=== PATIENT | male | born 1975 | race Caucasian/White ===

== ENCOUNTER 2019-07-16 07:39 | Emergency (ER) | payer OTHER ==
[2019-07-16] MEDS ORDERED: Ondansetron 4 MG/2 ML SDV IVPUSH ONE (07:59)
[2019-07-16] MEDS ORDERED: Sodium Chloride 0.9% 500 ML IV ONE ×2 (07:59→09:24)
[2019-07-16] MEDS ORDERED: HYDROmorphone 1 MG/ML Syringe IVPUSH PRN ×2 (08:00→08:29)
--- NOTE | 2019-07-16 08:01 | EDM.PDOC ---
ED HPI GENERAL MEDICAL PROBLEM - General Chief Complaint: Abdominal Pain Stated Complaint: LEFT SIDE STOMACH PAIN Time Seen by Provider: 07/16/19 07:53 Source of Information: Reports: Patient - History of Present Illness INITIAL COMMENTS - FREE TEXT/NARRATIVE: Presents with acute onset of left lower quadrant pain. Onset this morning. Was already awake. Never had anything like this before nothing makes it better or worse. Patient 10 out of 10, is gated, no vomiting had a normal bowel movement. Had normal urine no burning pain or blood in the urine no flank pain or testicle pain. Nothing otherwise seems to make it better or worse cannot find a comfortable position. No history of any major surgeries, no allergies except for nickel, no medication allergies. No coughing or cold symptoms no sore throat or runny nose no headaches no chest pain or palpitations. No burning pain or blood in the urine. Onset: Sudden Duration: Getting Worse Location: Reports: Abdomen Quality: Reports: Sharp Severity: Severe Improves with: Reports: None Worsens with: Reports: None Associated Symptoms: Reports: Diaphoresis, Nausea/Vomiting Left Middle Abdomen Pain Score (Numeric/FACES): 10 - Related Data Allergies Allergy/AdvReac Type Severity Reaction Status Date / Time No Known Allergies Allergy Verified 07/16/19 07:59 Home Meds: Home Meds Acetaminophen/HYDROcodone [[place] 325-5 MG] 1 - 2 tab PO Q4H PRN #10 tablet 07/15 [Rx] Antidepressant. 07/16/19 [History] Gout. 07/16/19 [History] Ketorolac [Toradol] 10 mg PO Q6H PRN #7 tab 07/16/19 [Rx] Ondansetron [Zofran ODT] 4 mg PO Q6H PRN #10 tab.dis 07/16/19 [Rx] ED ROS GENERAL - Review of Systems Review Of Systems: Comprehensive ROS is negative, except as noted in HPI. Constitutional: Reports: Diaphoresis HEENT: Denies: Rhinitis Respiratory: Denies: Shortness of Breath, Cough Cardiovascular: Denies: Chest Pain, Syncope GI/Abdominal: Reports: Abdominal Pain, Nausea, Vomiting. Denies: Black Stool, Bloody Stool, Diarrhea : Denies: Dysuria, Flank Pain, Hematuria, Urinary Retention Musculoskeletal: Denies: Neck Pain, Muscle Pain Skin: Reports: Diaphoresis Neurological: Denies: Dizziness, Headache Psychiatric: Reports: Anxiety Immunologic: Reports: No Symptoms ED EXAM, GI/ABD - Physical Exam Exam: See Below Exam Limited By: No Limitations General Appearance: Alert, Anxious, Moderate Distress Eyes: Bilateral: EOMI Throat/Mouth: Normal Inspection Head: Atraumatic Neck: Normal Inspection, Supple Respiratory/Chest: No Respiratory Distress, Lungs Clear, Normal Breath Sounds Cardiovascular: Normal Peripheral Pulses, Regular Rate, Rhythm, No Edema, No JVD GI/Abdominal Exam: Normal Bowel Sounds, No Distention, Guarding, Tender, Other ( Tender left lower quadrant mild left flank tenderness, no rebound rigidity no testicle or groin pain.) (Male) Exam: No Hernia Back Exam: Normal Inspection Extremities: Normal Inspection, No Pedal Edema Neurological: Alert, Oriented, No Motor/Sensory Deficits Psychiatric: Anxious Skin Exam: Cool, Diaphoretic Course - Vital Signs Text/Narrative:: Examination, IV, fluids, Dilaudid, Zofran, CT scan noncontrast left flank tenderness/left lower quadrant pain rule out acute appendicitis , diverticulitis , renal colic, pyelonephritis, doubt AAA, doubt bowel obstruction. Labs sent including CBC CMP, urinalysis. Last Recorded V/S: Last Vital Signs Temp 96.9 F 07/16/19 07:48 Pulse 82 07/16/19 07:48 Resp 16 07/16/19 07:48 BP 151/87 H 07/16/19 07:48 Pulse Ox 100 07/16/19 07:48 - Orders/Labs/Meds Orders: Active Orders 24 hr Category Date Time Status UA W/MICROSCOPIC [URIN] Stat Lab 07/16/19 07:58 Ordered HYDROmorphone [Dilaudid] Med 07/16/19 08:29 Active 1 mg IVPUSH ONETIME PRN HYDROmorphone [Dilaudid] Med 07/16/19 08:00 Active 1 mg IVPUSH Q1H PRN Sodium Chloride 0.9% [Normal Saline] 500 ml Med 07/16/19 09:24 Ordered IV .BOLUS Medication Orders Hydromorphone HCl (Dilaudid) 1 mg IVPUSH Q1H PRN PRN Reason: Abdominal Pain Last Admin: 07/16/19 08:13 Dose: 1 mg Hydromorphone HCl (Dilaudid) 1 mg IVPUSH ONETIME PRN PRN Reason: Abdominal Pain Last Admin: 07/16/19 08:35 Dose: 1 mg Sodium Chloride (Normal Saline) 500 mls @ 500 mls/hr IV .BOLUS ONE Stop: 07/16/19 10:23 Last Admin: 07/16/19 09:39 Dose: 500 mls/hr Labs: Laboratory Tests 07/16/19 07/16/19 Range/Units 07:58 07:58 WBC 7.49 (4.23-9.07) K/mm3 RBC 5.44 (4.63-6.08) M/mm3 Hgb 16.1 (13.7-17.5) gm/dl Hct 47.0 (40.1-51.0) % MCV 86.4 (79.0-92.2) fl MCH 29.6 (25.7-32.2) pg MCHC 34.3 (32.2-35.5) g/dl RDW Std Deviation 43.0 (35.1-43.9) fL Plt Count 255 (163-337) K/mm3 MPV 10.0 (9.4-12.3) fl Neut % (Auto) 39.8 (34.0-67.9) % Lymph % (Auto) 46.7 (21.8-53.1) % [place] % (Auto) 10.0 (5.3-12.2) % Eos % (Auto) 3.1 (0.8-7.0) Baso % (Auto) 0.4 (0.1-1.2) % Neut # (Auto) 2.98 (1.78-5.38) K/mm3 Lymph # (Auto) 3.50 (1.32-3.57) K/mm3 [place] # (Auto) 0.75 (0.30-0.82) K/mm3 Eos # (Auto) 0.23 (0.04-0.54) K/mm3 Baso # (Auto) 0.03 (0.01-0.08) K/mm3 Sodium 139 (136-145) mEq/L Potassium 3.9 (3.5-5.1) mEq/L Chloride 103 (98-107) mEq/L Carbon Dioxide 22 (21-32) mEq/L Anion Gap 17.9 H (5-15) BUN 21 H (7-18) mg/dL Creatinine 1.3 (0.7-1.3) mg/dL Est Cr Clr Drug Dosing 90.88 mL/min Estimated GFR (MDRD) > 60 (>60) mL/min BUN/Creatinine Ratio 16.2 (14-18) Glucose 123 H (74-106) mg/dL Calcium 9.3 (8.5-10.1) mg/dL Total Bilirubin 0.6 (0.2-1.0) mg/dL AST 27 (15-37) U/L ALT 52 (16-63) U/L Alkaline Phosphatase 61 (46-116) U/L Total Protein 7.8 (6.4-8.2) g/dl Albumin 3.8 (3.4-5.0) g/dl Globulin 4.0 gm/dL Albumin/Globulin Ratio 1.0 (1-2) Meds: Medications Generic Name Dose Route Start Last Admin Trade Name Freq PRN Reason Stop Dose Admin Hydromorphone HCl 1 mg 07/16/19 08:00 07/16/19 08:13 Dilaudid IVPUSH 1 mg Q1H PRN Administration Abdominal Pain Hydromorphone HCl 1 mg 07/16/19 08:29 07/16/19 08:35 Dilaudid IVPUSH 1 mg ONETIME PRN Administration Abdominal Pain Sodium Chloride 500 mls @ 500 mls/hr 07/16/19 09:24 07/16/19 09:39 Normal Saline IV 07/16/19 10:23 500 mls/hr .BOLUS ONE Administration Discontinued Medications Generic Name Dose Route Start Last Admin Trade Name Freq PRN Reason Stop Dose Admin Sodium Chloride 500 mls @ 500 mls/hr 07/16/19 07:59 07/16/19 08:13 Normal Saline IV 07/16/19 08:58 500 mls/hr .BOLUS ONE Administration Ketorolac Tromethamine 15 mg 07/16/19 09:24 07/16/19 09:39 Toradol IVPUSH 07/16/19 09:25 15 mg ONETIME ONE Administration Ondansetron HCl 4 mg 07/16/19 07:59 07/16/19 08:14 Zofran IVPUSH 07/16/19 08:00 4 mg ONETIME ONE Administration - Radiology Interpretation CT Results Date: 07/16/19 CT Results Time: 09:22 (Reviewed CT results that showed 3.5 mm obstructing stone with a left distal UVJ, 2 nonobstructing calculi noted left kidney fatty infiltrate throughout the liver otherwise no other acute findings.) - Re-Assessments/Exams Free Text/Narrative Re-Assessment/Exam: 07/16/19 08:44 White blood cell count within normal limits, liver function tests are normal, BUN and creatinine are stable. CT scan exams results are pending. 07/16/19 09:55 Patient continues to do well will discharge home with ketorolac, Zofran, [place] if needed, strain urine for stones, low up and return precautions given Free Text/Narrative Re-Assessment/Exam: 07/16/19 09:22 Reviewed the results with the patient. After update him that there might be 2 small nonobstructive stones in the left kidney. The bowels are otherwise normal except for some gas, no bowel obstruction, no other concerning findings except for some mild fatty liver changes. LFTs and lab results are otherwise are normal. Patient still has not urinated. His pain is much improved. We will give him a dose of ketorolac IV, more fluids, make sure he urinates, otherwise anticipate home with straining his urine, kidney stone precautions given, drink more water and fluids and return precautions will be given. Departure - Departure Time of Disposition: 09:56 Disposition: Home, Self-Care 01 Condition: Good Clinical Impression: Flank pain, Ureteral stone with hydronephrosis - Discharge Information *PRESCRIPTION DRUG MONITORING PROGRAM REVIEWED*: Not Applicable Prescriptions: Acetaminophen/HYDROcodone [[place] 325-5 MG] 1 - 2 tab PO Q4H PRN #10 tablet PRN Reason: Pain Ketorolac [Toradol] 10 mg PO Q6H PRN #7 tab PRN Reason: Pain (Moderate 4-6) Ondansetron [Zofran ODT] 4 mg PO Q6H PRN #10 tab.dis PRN Reason: Nausea/Vomiting Instructions: Hydronephrosis, Flank Pain, Adult, [id number] Referrals: Guanaco Felipe MD [Primary Care Provider] - Forms: ED Department Discharge Additional Instructions: Drink plenty of water, take medications as directed. Strain urine for stones. Return if any signs of infection such as fevers, chills, sweats, unable to urinate, bloody urine, increasing pain, vomiting and unable to keep down fluids. Sepsis Event Note - Evaluation Sepsis Screening Result: No Definite Risk - Focused Exam Vital Signs: Vital Signs Temp Pulse Resp BP Pulse Ox 07/16/19 07:48 96.9 F 82 16 151/87 H 100 Date Exam was Performed: 07/16/19 Time Exam was Performed: 09:47 - My Orders Last 24 Hours: My Active Orders 07/16/19 07:58 UA W/MICROSCOPIC [URIN] Stat 07/16/19 08:00 HYDROmorphone [Dilaudid] 1 mg IVPUSH Q1H PRN 07/16/19 08:29 HYDROmorphone [Dilaudid] 1 mg IVPUSH ONETIME PRN 07/16/19 09:24 Sodium Chloride 0.9% [Normal Saline] 500 ml IV .BOLUS - Assessment/Plan Last 24 Hours: My Active Orders 07/16/19 07:58 UA W/MICROSCOPIC [URIN] Stat 07/16/19 08:00 HYDROmorphone [Dilaudid] 1 mg IVPUSH Q1H PRN 07/16/19 08:29 HYDROmorphone [Dilaudid] 1 mg IVPUSH ONETIME PRN 07/16/19 09:24 Sodium Chloride 0.9% [Normal Saline] 500 ml IV .BOLUS
--- NOTE | 2019-07-16 09:16 | CT ---
CT abdomen and pelvis Technique: Multiple axial sections were obtained from above the dome of the diaphragm inferiorly through the pubic symphysis. Intravenous and oral contrast was not utilized. Comparison: No prior abdominal imaging is available. Findings: Visualized lung bases show nothing acute. Liver shows diffuse fatty infiltration. Spleen appears within normal limits. Adrenal glands show no nodule. Pancreas shows no discrete abnormality. Gallbladder contains no calcified gallstones. Aorta shows no aneurysm. No retroperitoneal adenopathy is seen. Mildly dilated collecting system of the left kidney is seen. Dilated left ureter is noted. These findings are caused by an obstructing stone within the distal left ureter at the UVJ measuring about 3.5 mm. 2 nonobstructing calculi are noted within the left kidney measuring 5.2 mm and 3.0 mm. No mesenteric abnormalities are seen. No pelvic mass or adenopathy is identified. Appendix felt to be visualized and is normal in size. Impression: 1. 3.5 mm obstructing stone within the distal left ureter located at the UVJ. 2. 2 nonobstructing calculi within the left kidney. 3. Fatty infiltration throughout the liver. Diagnostic code #3 Study was dictated in MDT
[2019-07-16] MEDS ORDERED: Ketorolac 15 MG/ML SDV IVPUSH ONE (09:24)
== END 2019-07-16 10:09 | disposition home or self-care (01) ==
LOC: JD.ED 07:39
DX: N13.2 Hydronephrosis with renal and ureteral calculous obstruction (principal)
CPT/HCPCS: 36415; 74176; 80053; 81001; 85025; 96361; 96374; 96375; 99284; J1170; J1885; J2405; J7030